=== PATIENT | male | born 1960 | race Caucasian/White ===

== ENCOUNTER 2023-09-17 08:25 | Emergency (ER) | payer OTHER ==
[~2023-09-17] VITALS: Ht 175.3 cm; Wt 104.3 kg
[~2023-09-17 08:25] MED LIST: Antivert25 MG PO
[2023-09-17] MEDS ORDERED: Ventolin/Prove6.7 GM INH (08:55)
[2023-09-17] MEDS ORDERED: FLUTICASONE-SA1 EAC9 INH (08:55)
[2023-09-17 09:40] LABS: BASOPHILS ABSOLUTE AUTO 0.05 K/mm3 (0.00-0.23); BASOPHILS PERCENT AUTO 1 % (0-2); EOSINOPHILS ABSOLUTE AUTO 0.17 K/mm3 (0.00-0.68); EOSINOPHILS PERCENT AUTO 2 % (0-6); Hematocrit 52.2 % (37.0-53.0); Hemoglobin 16.5 g/dL (13.5-17.5); IMMATURE GRAN ABSOLUTE AUTO 0.06 K/mm3 (0.00-0.10); IMMATURE GRAN PERCENT AUTO 1 % (0-1); LYMPHOCYTES PERCENT AUTO 25 % (21-46); MONOCYTES ABSOLUTE AUTO 0.67 K/mm3 (0.16-1.47); MONOCYTES PERCENT AUTO 9 % (4-13); Mean Corpuscular HGB 29.7 pg (26.0-34.0); Mean Corpuscular HGB Conc 31.6 g/dL (31.5-36.5); Mean Corpuscular Volume 94 fL (80-100); Mean Platelet Volume 10.2 fL (9.1-12.4); NEUTROPHILS ABSOLUTE AUTO 4.42 K/mm3 (1.96-9.15); NEUTROPHILS PERCENT AUTO 62 % (41-73); Platelet Count 182 K/mm3 (150-400); RDW Coefficient Variation 17.2 % (11.7-14.2); RDW Standard Deviation 57.8 fL (35.1-46.3); Red Blood Cell Count 5.56 M/mm3 (4.30-5.90); White Blood Cell Count 7.17 K/mm3 (4.00-11.30)
[2023-09-17 09:58] LABS: Albumin, Blood 3.2 g/dL (3.4-5.0); Albumin/Globulin Ratio 0.9 (0.8-1.8); Bilirubin, Total 0.4 mg/dL (0.1-1.0); Bun/Creatinine Ratio 16.9 (12.0-20.0); Calcium, Blood 8.4 mg/dL (8.5-10.1); Creatinine, Blood 0.83 mg/dL (0.60-1.20); Globulin, Blood 3.7 g/dL (2.2-4.0); Total Protein, Blood 6.9 g/dL (6.4-8.2)
[2023-09-17 13:37] VITALS: BP 142/92
== END 2023-09-17 13:50 | disposition home or self-care (01) ==
LOC: ER 08:25
PROVIDERS: Emergency Medicine
DX: R60.0 Localized edema (principal); R09.02 Hypoxemia; J44.9 Chronic obstructive pulmonary disease, unspecified; F17.200 Nicotine dependence, unspecified, uncomplicated; Z79.899 Other long term (current) drug therapy
CPT/HCPCS: 71046; 80053; 83880; 84484; 85025; 93005; 93010; 96374; 99284-25; J1940

== ENCOUNTER 2025-04-22 12:26 | Day surgery (SDC) | payer OTHER ==
[~2025-04-22] VITALS: Ht 175.3 cm; Wt 96.4 kg
[~2025-04-22 12:26] MED LIST changes: +Balanced Salt Epinephrine Irrigation Solution 500 mL IR SCH; +FLUTICASONE-SA1 EAC9 INH; +Moxifloxacin HCL 0.5 MG/0.1 ML 0.4MLSYR RIGHTEYE SCH; +NS 500 ML IV ONE; +Ondansetron 4 MG SoluTab MM PRN; +PHENYLEPHRINE\\TROPICAMIDE\\TETRACAINE OPHTHALMIC DILATING SOLN RIGHTEYE PRN; +Povidone-Iodine 450 DROP/30 ML Solution ONE; +Povidone-Iodine 450 DROP/30 ML Solution RIGHTEYE SCH; +Tetracaine HCl/Pf 0.5% Opth Soln 4 ml ONE; +Triamcinolone Inj Susp 40 MG / ML 1ML Vial INJ SCH; +Triamcinolone Inj Susp 40 MG / ML 1ML Vial ONE; +Ventolin/Prove6.7 GM INH
[2025-04-22] MEDS ORDERED: EUTHYROX175 MCG PO (12:59)
[2025-04-22] MEDS ORDERED: FURO40 PO (12:59)
[2025-04-22] MEDS ORDERED: NS 500 ML IV ONE (13:14)
[2025-04-22] MEDS ORDERED: Midazolam HCl 1MG / ML 2ML Vial ONE (13:50)
[2025-04-22] MEDS ORDERED: FentaNYL Citrate 50 MCG/ML 2 ML Injection ONE (13:50)
[2025-04-22 14:30] VITALS: BP 118/80
== END 2025-04-22 14:25 | disposition home or self-care (01) ==
LOC: ORSCSDS 12:26
PROVIDERS: Ophthalmology
PROC: 08RJ3JZ Replacement of Right Lens with Synthetic Substitute, Percutaneous Approach (ICD-10-PCS; principal; 2025-04-22 14:30)
DX: H25.813 Combined forms of age-related cataract, bilateral (principal); J44.9 Chronic obstructive pulmonary disease, unspecified; E03.9 Hypothyroidism, unspecified; Z79.899 Other long term (current) drug therapy; F17.210 Nicotine dependence, cigarettes, uncomplicated
CPT/HCPCS: J0166; J2250; J3010; J3301; J7040; V2632

== ENCOUNTER 2025-04-29 08:07 | Day surgery (SDC) | payer OTHER ==
[~2025-04-29] VITALS: Ht 175.3 cm; Wt 94.6 kg
[~2025-04-29 08:07] MED LIST changes: +EUTHYROX175 MCG PO; +FURO40 PO; +Moxifloxacin HCL 0.5 MG/0.1 ML 0.4MLSYR LEFTEYE SCH; -Moxifloxacin HCL 0.5 MG/0.1 ML 0.4MLSYR RIGHTEYE SCH; +PHENYLEPHRINE\\TROPICAMIDE\\TETRACAINE OPHTHALMIC DILATING SOLN LEFTEYE PRN; -PHENYLEPHRINE\\TROPICAMIDE\\TETRACAINE OPHTHALMIC DILATING SOLN RIGHTEYE PRN; +Povidone-Iodine 450 DROP/30 ML Solution LEFTEYE SCH; -Povidone-Iodine 450 DROP/30 ML Solution RIGHTEYE SCH; -Triamcinolone Inj Susp 40 MG / ML 1ML Vial INJ SCH
[2025-04-29] MEDS ORDERED: FLUTICASONE-SA1 EA10 IH (09:09)
[2025-04-29] MEDS ORDERED: POTCHL20ER PO (09:10)
[2025-04-29] MEDS ORDERED: NS 500 ML IV ONE (09:21)
[2025-04-29] MEDS ORDERED: Midazolam HCl 1MG / ML 2ML Vial ONE (09:34)
[2025-04-29] MEDS ORDERED: FentaNYL Citrate 50 MCG/ML 2 ML Injection ONE (09:34)
[2025-04-29 10:24] VITALS: BP 141/92
== END 2025-04-29 10:20 | disposition home or self-care (01) ==
LOC: ORSCSDS 08:07
PROVIDERS: Ophthalmology
PROC: 08RK3JZ Replacement of Left Lens with Synthetic Substitute, Percutaneous Approach (ICD-10-PCS; principal; 2025-04-29 09:30)
DX: H25.812 Combined forms of age-related cataract, left eye (principal); Z96.1 Presence of intraocular lens; I10 Essential (primary) hypertension; J44.9 Chronic obstructive pulmonary disease, unspecified; E03.9 Hypothyroidism, unspecified; E66.9 Obesity, unspecified; Z68.31 Body mass index [BMI] 31.0-31.9, adult; F17.210 Nicotine dependence, cigarettes, uncomplicated; Z79.899 Other long term (current) drug therapy
CPT/HCPCS: J2250; J3010; J3301; J7040; V2632